=== PATIENT | female | born 1990 | race Caucasian/White ===

== ENCOUNTER 2017-05-11 21:54 | Emergency (ER) | payer OTHER ==
[~2017-05-11] VITALS: Ht 157.5 cm; Wt 99.8 kg
[~2017-05-11 21:54] MED LIST: Bactrim Ds Tab1 EACH PO; CEPH500 PO; CODACE30 PO; CODGUAEL PO; CYCL10 PO; HYOS.125 SL; IBUP800 PO; KETO15TC TP; MULVITMINE PO; MUPI2TO TOP; NAPR500 PO; Naprosyn500 MG PO; Norco 5-325 Ta1 EACH PO; OXYACE5T PO; PREN-16 PO; PROM25 PO; Pyridium100 MG PO; RXCODACET PO; RXCYCL10 PO; Valium5 MG PO; Zofran Odt4 MG SL
[2017-05-11] MEDS ORDERED: Cyclobenzaprine5 MG PO (23:13)
== END 2017-05-12 00:49 | disposition home or self-care (01) ==
LOC: ER 21:54
DX: M54.2 Cervicalgia (principal); M62.830 Muscle spasm of back; Z79.899 Other long term (current) drug therapy
CPT/HCPCS: 72040; 96372; 99284; J1100; J1885; J2270

== ENCOUNTER 2018-06-07 16:16 | Emergency (ER) | payer OTHER ==
[~2018-06-07] VITALS: Ht 160 cm; Wt 94.8 kg
[~2018-06-07 16:16] MED LIST changes: +Cyclobenzaprine5 MG PO
[2018-06-07] MEDS ORDERED: Robaxin-750750 MG PO (17:00)
[2018-06-07] MEDS ORDERED: METPRE4DP PO (17:00)
== END 2018-06-07 17:30 | disposition home or self-care (01) ==
LOC: ER 16:16
DX: S16.1XXA Strain of muscle, fascia and tendon at neck level, initial encounter (principal); S46.911A Strain of unspecified muscle, fascia and tendon at shoulder and upper arm level, right arm, initial encounter; X58.XXXA Exposure to other specified factors, initial encounter
CPT/HCPCS: 96372; 99283-25; J1885

== ENCOUNTER 2018-08-29 17:16 | Emergency (ER) | payer OTHER ==
[~2018-08-29] VITALS: Ht 160 cm; Wt 96.6 kg
[~2018-08-29 17:16] MED LIST changes: +METPRE4DP PO; +Robaxin-750750 MG PO
[2018-08-29 18:35] LABS: Source, Urine Clean Catch
[2018-08-29 18:41] LABS: Bilirubin, Urine Neg (Neg); Blood, Urine Neg (Neg); Glucose Qualitative, Urine Neg (Neg); Ketones, Urine Neg (Neg); Leukocyte Esterase, Urine Neg (Neg); Nitrite, Urine Neg (Neg); Protein, Urine Neg (Neg); Specific Gravity, Urine 1.025 (1.003-1.022); Urobilinogen, Urine NORM (Normal)
[2018-08-29 18:47] LABS: Appearance, Urine Clear (Clear); Color, Urine Yellow (P-Yellow)
[2018-08-29] MEDS ORDERED: Robaxin500 MG PO (18:59)
== END 2018-08-29 19:06 | disposition home or self-care (01) ==
LOC: ER 17:16
PROVIDERS: Physician Assistant
DX: G89.29 Other chronic pain (principal); M54.5 Low back pain
CPT/HCPCS: 81003; 96372; 99283-25; J1885

== ENCOUNTER → 2021-08-26 | Outpatient (CLI) | payer OTHER ==
[~2021-08-26] MED LIST changes: +Robaxin500 MG PO
== END | disposition home or self-care (01) ==
LOC: LAB SHORT 10:43 → LAB 10:43
DX: N39.0 Urinary tract infection, site not specified (principal)
CPT/HCPCS: 87086